=== PATIENT | male | born 1935 | race Caucasian/White ===

== ENCOUNTER 2023-10-15 13:13 | Day surgery (SDC) | payer MEDICARE, BC ==
[2023-10-15] VITALS (11 sets, daily range): BP systolic 112–156; BP diastolic 59–82; PULSE 69–84; TEMP 97.1–98.4
[~2023-10-15] VITALS: Ht 170.2 cm; Wt 95.9 kg
[~2023-10-15 13:13] MED LIST: LR 1,000 ML IV SCH
[2023-10-15] MEDS ORDERED: HCTZ 25MG TAB25 MG PO (13:54)
[2023-10-15] MEDS ORDERED: LIPITOR20 MG PO (13:54)
[2023-10-15] MEDS ORDERED: fentaNYL 50 MCG/ML 2 ML VIAL ONE (14:09)
[2023-10-15] MEDS ORDERED: Ondansetron 4 MG/2 ML VIAL ONE (14:09)
[2023-10-15] MEDS ORDERED: Tranexamic Acid 1,000 MG/10 ML VIAL ONE (14:09)
[2023-10-15] MEDS ORDERED: dexAMETHasone 10 MG/ML VIAL ONE (14:09)
[2023-10-15] MEDS ORDERED: NS 10 ML IV ONE (14:09)
--- NOTE | 2023-10-15 14:15 | NUR ---
The patient ambulated back to [facility] independently using a steady gait and appeared to tolerate the activity well. Vital signs obtained. Consent signed. 18G IV started in right hand with one stick, LR Infusing without difficulty. Assessment completed. Home medications reconcilled. Warm blanket provided. Family at bedside. Denies any further needs.
[2023-10-15] MEDS ORDERED: fentaNYL 50 MCG/ML 1 ML SYRINGE/VIAL [PACU/SDC ONLY] IV PRN (14:30)
[2023-10-15] MEDS ORDERED: HYDROmorphone 1 MG/1 ML SYRINGE [PACU/SDC ONLY] IV PRN (14:30)
[2023-10-15] MEDS ORDERED: droPERidol 2.5 MG/ML 2 ML VIAL IV PRN (14:30)
[2023-10-15] MEDS ORDERED: Ondansetron 4 MG/2 ML VIAL IV PRN ×2 (14:30→15:30)
[2023-10-15] MEDS ORDERED: hydrALAZINE 20 MG/ML 1 ML VIAL IV PRN (14:30)
[2023-10-15] MEDS ORDERED: Iohexol 350 - 100 ML VIAL URETER-B ONE (15:00)
[2023-10-15] MEDS ORDERED: Lidocaine 2% (20 MG/ML) 20 ML UROJET UR ONE (15:00)
[2023-10-15] MEDS ORDERED: oxyCODONE 5 MG TAB PO PRN (15:30)
[2023-10-15] MEDS ORDERED: NS Irrig Soln 3000 ML SOLN IR PRN (15:30)
[2023-10-15] MEDS ORDERED: Magnes Hydrox (MOM) 80 MG/ML 30 ML CUP PO PRN (15:30)
[2023-10-15] MEDS ORDERED: Hyoscyamine 0.125 MG Sublingual TAB SL PRN (15:30)
[2023-10-15] MEDS ORDERED: Naloxone 0.4 MG/ML VIAL IV PRN (15:30)
[2023-10-15] MEDS ORDERED: Acetaminophen 500 MG TAB PO SCH (16:30)
--- NOTE | 2023-10-15 17:10 | NUR ---
PATIENT ADMITED INTO ROOM 328 POST-OP. ORIENTED BUT DROWSY. VSS. DENIES PAIN BUT C/O FEELING LIKE HE HAS TO PEE. ELIZABETH TO DD WITH CBI INFUSING AT MOD RATE WITH CLEAR PALE URINE NOTED. IV FLUIDS INFUSING. TOLERATING ICE CHIPS. NO C/O N/V. PACU REPORTS GIVING PATIENT LEVSIN PRIOR TO ARRIVAL TO FLOOR. HEAD TO TOE ASSESSMENT COMPLETE. ORIENTED PATIENT & FAMILY TO ROOM. CALL LIGHT IN REACH.
--- NOTE | 2023-10-15 17:30 | NUR ---
PATIENT CONTINUES TO C/O FEELING COLD AND LIKE HE HAS TO PEE. NOTED CBI INFUSING AT MOD RATE BUT ELIZABETH DRAINING SLOW. IRRIGATED X2 VERY EASY, NO CLOTS BUT LOTS OF CLEAR PALE URINE OUTPUT AFTER IRRIGATION. PATIENT TOLERATED WELL. WILL MONITOR.
--- NOTE | 2023-10-15 20:00 | NUR ---
PT IN BED, TAKING ICE CHIPS WITHOUT PROBLEM. CBI SLOW, URINE PALE YELLOW. ELIZABETH TO TENSION, CATHETER CARE PROVIDED. PT HAS SCDS ON. IVF TO RT WRIST INFUSING WITHOUT PROBLEM. IS ALERT AND ORIENTED X4.
[2023-10-15] MEDS ORDERED: Docusate Sodium 100 MG CAP PO SCH (21:00)
[2023-10-15] MEDS ORDERED: Melatonin 3 MG TAB PO PRN (21:00)
[2023-10-15] MEDS ORDERED: Atorvastatin 20 MG TAB PO SCH (21:00)
--- NOTE | 2023-10-15 23:48 | NUR ---
PT IN BED WATCHING TV. CBI SLOW, URINE REMAINS PALE YELLOW. CHOCOLATE PUDDING PROVIDED. INCREASED DIET TO GENERAL.
[2023-10-16] VITALS (7 sets, daily range): BP systolic 125–146; BP diastolic 67–74; PULSE 68–71; TEMP 97.5–98.4
[2023-10-16] MEDS ORDERED: MITOMYCIN 40 MG IS SCH (09:00)
[2023-10-16] MEDS ORDERED: 1/2 NS & 20 mEq KCl 1,000 ML IV SCH (09:00)
[2023-10-16] MEDS ORDERED: WATER FOR INJECTION STERILE IS SCH (09:00)
[2023-10-16] MEDS ORDERED: hydroCHLOROthiazide 25 MG TAB PO SCH ×2 (09:00)
--- NOTE | 2023-10-16 09:10 | NUR ---
CHEMO NURSE AT BEDSIDE TO INSTILL MITOMYCIN PER ORDERS.
--- NOTE | 2023-10-16 11:35 | NUR ---
Mitomycin completed at this time. Patient tolerated procedure well. Dwell time 2 hours. Urine blue tinged. Rowley discontinued. Instructions reviewed with and daughter. No questions at this time.
[2023-10-16] MEDS ORDERED: ZYLOPRIM 100MG100 MG PO (12:14)
--- NOTE | 2023-10-16 12:25 | NUR ---
washtub worker met with pt, , Marilee [phone] and daughter, Anne at bedside to discuss discharge planning. He reports to live in [place] with his . He sees RUFINO Calvillo for PCP needs and obtains medications from [facility] with no difficulties. He reports to be independent with ADLS and uses no DME. He does not have a DPOA-HC family reported. Discharge Plan: home
--- NOTE | 2023-10-16 13:27 | NUR ---
Initial visit; Patient thanked Dielectric Embossing Machine Operator for stopping and offering god's blessings thoug declined further "Spiritual Care."
--- NOTE | 2023-10-16 15:40 | NUR ---
PATIENT MEET DISCHARGE CRITERIA, OKAY FOR DISCHARGE PER UROLOGY. GAVE DISCHARGE INSTRUCTIONS AND DISCUSSED F/U APT. ANSWERED QUESTIONS/CONCERNS. DC'D RIGHT HAND IV AND COVERED SITE WITH GAUZE & COBAN. PATIENT IS DRESSED, PACKED AND ESCORTED OUT VIA WC TO PERSONAL VEHICLE WITH FAMILY.
== END 2023-10-16 15:40 | disposition home or self-care (01) ==
LOC: SDCO 13:13 → SURG 17:00 → SDCO 10-16 15:40
DX: C67.2 Malignant neoplasm of lateral wall of bladder (principal); I10 Essential (primary) hypertension
CPT/HCPCS: OP; C1769; J0360; J0690; J1100; J2405; J2704; J3010; J9280; Q9967